=== PATIENT | female | born 1945 | race Caucasian/White ===

== ENCOUNTER 2020-04-02 11:49 | Emergency (ER) | payer MEDICARE, MEDICAID ==
[~2020-04-02] VITALS: Ht 154.9 cm; Wt 53.0 kg
[2020-04-02] MEDS ORDERED: albuterol 2.5 MG/3 ML nebule NEB ONE (12:10)
[2020-04-02 13:29] VITALS: BP 152/71
== END 2020-04-02 13:33 | disposition home or self-care (01) ==
LOC: ER 11:49
DX: J45.901 Unspecified asthma with (acute) exacerbation (principal); R06.02 Shortness of breath; R05 Cough; I12.9 Hypertensive chronic kidney disease with stage 1 through stage 4 chronic kidney disease, or unspecified chronic kidney disease; N18.9 Chronic kidney disease, unspecified; G89.29 Other chronic pain; F17.200 Nicotine dependence, unspecified, uncomplicated; Z88.1 Allergy status to other antibiotic agents; Z88.8 Allergy status to other drugs, medicaments and biological substances; Z88.6 Allergy status to analgesic agent
CPT/HCPCS: 71045; 94640; 94760; 99283